=== PATIENT | male | born 1930 | race Caucasian/White ===

== ENCOUNTER 2018-03-09 03:09 | Emergency (ER) | payer MEDICARE, OTHER ==
[~2018-03-09] VITALS: Ht 175.3 cm; Wt 70.3 kg
[~2018-03-09 03:09] MED LIST: METO25TA6; SIMV10TA6
[2018-03-09] MEDS ORDERED: ACETAMINOPHEN 650 MG/SUPP.RECT RC ONE ×2 (03:30→03:52)
[2018-03-09] MEDS ORDERED: IV NS 0.9% 500 ML BAG IV ONE (03:30)
--- NOTE | 2018-03-09 03:30 | NUR ---
rectal temp 103.3f. aware.
[2018-03-09 03:55] LABS: BASOPHILS % (AUTO) 0.2 % (0.0-2.0); HEMATOCRIT 46 % (39-51); HEMOGLOBIN 15.4 g/dL (13.5-17.5); LYMPHOCYTES # (AUTO) 0.6 /CMM (0.8-4.8); LYMPHOCYTES % (AUTO) 5.3 % (20.0-44.0); MEAN CORPUSCULAR HGB CONC 33 g/dl (31.0-36.0); MEAN CORPUSCULAR VOLUME 95 fL (80-96); MONOCYTES # (AUTO) 0.7 /CMM (0.1-1.30); MONOCYTES % (AUTO) 6.6 % (2.0-12.0); NEUTROPHILS # (AUTO) 9.3 /CMM (1.8-8.9); NEUTROPHILS % (AUTO) 87.9 % (43.0-81.0); PLATELET COUNT (AUTO) 202 /CMM (150-450); RDW COEFFICIENT OF VARIATION 13.3 (11.5-15.0); RED BLOOD CELL COUNT(AUTO) 4.86 MIL/uL (4.5-6.0); WHITE BLOOD COUNT (AUTO) 10.5 K/uL (4.3-11.0)
--- NOTE | 2018-03-09 04:00 | NUR ---
IV ACCESS STARTED ON RFA #20G
[2018-03-09 04:09] LABS: INR 1.08 (0.87-1.13)
[2018-03-09 04:23] LABS: ALANINE AMINOTRANSFERASE 20 U/L (12-78); ALBUMIN 3.4 g/dL (3.4-5.0); ALKALINE PHOSPHATASE 86 U/L (46-116); ASPARTATE AMINOTRANSFERASE 21 U/L (15-37); BILIRUBIN,DIRECT 0.2 mg/dL (0.0-0.2); CALCIUM, SERUM 9.5 mg/dL (8.5-10.1); CARBON DIOXIDE 24 mmol/L (21-32); CHLORIDE 104 mmol/L (98-107); CREATININE 1.5 mg/dL (0.6-1.3); GLUCOSE 152 mg/dL (74-106); POTASSIUM 4.1 mmol/L (3.5-5.1); SODIUM SERUM 139 mmol/L (136-145); TOTAL PROTEIN, SERUM 7.5 g/dL (6.4-8.2); UREA NITROGEN, BLOOD 20 mg/dL (7-18)
[2018-03-09] MEDS ORDERED: AZITHROMYCIN 500 MG in IV D5W 250 ML IV ONE (05:00)
[2018-03-09] MEDS ORDERED: CEFTRIAXONE 1GM BAG (ER ONLY) 1 GM/50 ML PIGGYBACK IV ONE (05:00)
[2018-03-09] MEDS ORDERED: AZITHROMYCIN 500 MG VIAL ONE (05:02)
[2018-03-09] MEDS ORDERED: CEFTRIAXONE 1GM BAG (ER ONLY) 50 ML IV ONE (05:02)
--- NOTE | 2018-03-09 05:20 | NUR ---
urine collected via straight cath. sent to lab.
[2018-03-09 05:38] LABS: APPEARANCE,URINE CLEAR (CLEAR); BILIRUBIN,URINE NEGATIVE (NEGATIVE); BLOOD, URINE TRACE-INTA Ery/uL (NEGATIVE); COLOR,URINE YELLOW (YELLOW); KETONES,URINE TRACE (NEGATIVE); LEUKOCYTE ESTERASE ,URINE NEGATIVE (NEGATIVE); NITRITE, URINE NEGATIVE (NEGATIVE); PH,URINE 5.5 (5.0-8.0); PROTEIN,URINE NEGATIVE (NEGATIVE); UGLUCOSE NEGATIVE (NEGATIVE); UROBILINOGEN,URINE 0.2 EU/dL (0.2)
[2018-03-09 05:56] LABS: BACTERIA,URINE Few /HPF (None Seen); SQUAMOUS EPITHELIAL CELL,UR Rare /HPF (None Seen); WBC,URINE 0-2 /HPF (0-3)
[2018-03-09 05:57] LABS: MUCUS,URINE Few /LPF (None Seen)
--- NOTE | 2018-03-09 06:00 | NUR ---
UNABLE TO DO A PROPER STROKE SCALE ASSESSMENT DUE TO PATIENT's AMS. Pt IS A/OX1 (NAME ONLY). DUE TO Pt's CONFUSION, Pt IS UNABLE TO FOLLOW DIRECTIONS SUCH LIFTING ARMS OR LEGS UP FROM THE BED AND HOLDING IT IN POSITION. BUT DURING BEDSIDE OBSERVATION, WITNESSED Pt MOVING BOTH ARMS AND BOTH LEGS WHEN Pt WAS UNCOMFORTABLE OR WHEN REPOSITIONING Pt, WAS ABLE TO SEE Pt REACT BY MOVING HIS ARMS & LEGS. ALSO WHEN STARTING AN IV ACCESS, Pt WOULD MOVE BOTH OF HIS ARMS, AND BOTH OF HIS LEGS. WHEN GIVEN WATER TO SWALLOW, Pt WAS ABLE TO SWALLOW SMALL SIPS OF WATER. Addendum: 03/09/18 [address] LEE MADE AWARE OF Pt's CONDITION AND NOT BEING ABLE TO SUCCESSFULLY DO A FULL STROKE SCALE ASSESSMENT ON THE Pt DUE TO HIS AMS.
--- NOTE | 2018-03-09 06:00 | NUR ---
ALL ORDERED MEDS GIVEN
--- NOTE | 2018-03-09 06:49 | NUR ---
PENDING DISCHARGE TRANSFER TO [facility]; WAITING TO HEAR BACK FROM THEM FOR ACCEPTANCE.
--- NOTE | 2018-03-09 07:36 | NUR ---
REPORT GIVEN TO CHU ARENAS FOR Pt's BAN.
--- NOTE | 2018-03-09 08:49 | NUR ---
CALL BACK FROM SAUL RODRIGUEZ [phone], GOING TO [facility] ROOM 1201, REPORT TO BIJAN ARENAS AT [phone], ACCEPTED BY DR REINOSO
--- NOTE | 2018-03-09 08:51 | NUR ---
AMBULANCE ETA 1 HR
--- NOTE | 2018-03-09 09:13 | NUR ---
ATTEMPTED TO GIVE REPORT TO BIJAN ARENAS, SHE'S NOT AWARE THAT SHE IS GETTING THE PATIENT,WANTS ME TO CALL BACK AFTER 15 MINUTES AFTER SHE TALKS TO HER CHARGE NURSE
--- NOTE | 2018-03-09 09:34 | NUR ---
REPORT GIVEN TO BIJAN ARENAS FOR BAN
[2018-03-09 10:43] VITALS: BP 121/65
--- NOTE | 2018-03-09 10:45 | NUR ---
PATIENT TAKEN BY EMT CREW TO ACCEPTED FACILITY. AT BEDSIDE. AFEBRIL. VSS.
== END 2018-03-09 10:45 | disposition short-term general hospital (02) ==
LOC: ER 03:13
DX: J18.9 Pneumonia, unspecified organism (principal); R40.4 Transient alteration of awareness; I10 Essential (primary) hypertension
CPT/HCPCS: 36415; 70450; 71045; 80048; 80076; 81001; 83605; 85025; 85730; 87040 ×2; 93005; 96361; 96365; 96367; 99285; A4606; J0456; J0696; J7040; J7060; 81000-TC; Z7610